=== PATIENT | male | born 1975 | race Caucasian/White ===

== ENCOUNTER 2017-08-06 19:33 | Inpatient (IN) | payer MEDICAID ==
[~2017-08-06] VITALS: Ht 172.7 cm; Wt 98.0 kg
[2017-08-07] VITALS (7 sets, daily range): BP systolic 104–130; BP diastolic 60–86
[2017-08-07 02:24] LABS: PLATELET COUNT 176 x10^3mcL (130-400); RED CELL DISTRIBUTION WIDTH 13.1 % (11.5-14.5)
[2017-08-07 02:33] LABS: CREATININE SERUM 2.1 mg/dL (0.7-1.3); POTASSIUM SERUM 4.4 mmol/L (3.5-5.1)
[2017-08-07 02:35] LABS: CALCIUM 8.1 mg/dL (8.5-10.1); CARBON DIOXIDE 20.7 mmol/L (21-32)
[2017-08-07 03:06] LABS: BAND NEUTROPHIL 16 % (0-10); BASOPHIL 0 % (0-2); METAMYELOCTE 1 % (0-2); MONOCYTE 6 % (0-7); SEGMENTED NEUTROPHILS 69 % (37-75)
[2017-08-07 03:07] LABS: rbc morphology (normal/abnorm) NORMAL (NORMAL)
[2017-08-07] MEDS ORDERED: VENTOLIN H0.09 MG/A1 INH (04:26)
[2017-08-07] MEDS ORDERED: IBUPROFEN400 MG PO (04:27)
[2017-08-07 06:32] LABS: UA SPECIFIC GRAVITY 1.025 (1.005-1.035); microscopic required? YES; urine erythrocyte 2+ (NEGATIVE)
[2017-08-07 06:46] LABS: AMPHETAMINE QUAL UR NONE DETECTED (NEG <=1000)
[2017-08-07 07:54] LABS: MAGNESIUM 1.7 mg/dL (1.8-2.4); PHOSPHOROUS 1.7 mg/dL (2.5-4.9)
[2017-08-07 07:56] LABS: CHOLESTEROL/HDL RATIO 8.8
[2017-08-07 08:11] LABS: FREE T4 1.3 ng/dL (0.76-1.46); FREE THYROXINE INDEX 2.7 ug/dL (1.4-4.5); T3 TOTAL 0.55 ng/mL; T4(THYROXINE) 8.5 ug/dL (4.7-13.3)
[2017-08-08 05:24] VITALS: BP 118/63
[2017-08-08 09:49] VITALS: BP 127/72
[2017-08-08] MEDS ORDERED: LAC PO (11:30)
[2017-08-08] MEDS ORDERED: AZITHROMYCIN250 M1 PO (13:33)
[2017-08-08 15:31] LABS: PLATELET COUNT 196 x10^3mcL (130-400); RED CELL DISTRIBUTION WIDTH 13.6 % (11.5-14.5)
[2017-08-08 15:38] LABS: CALCIUM 7.6 mg/dL (8.5-10.1); CARBON DIOXIDE 25.8 mmol/L (21-32); CHLORIDE SERUM 102 mmol/L (98-107); CREATININE SERUM 1.3 mg/dL (0.7-1.3); GFR1 > 60 mL/min; GLUCOSE SERUM 195 mg/dL (74-106); MAGNESIUM 2.2 mg/dL (1.8-2.4); PHOSPHOROUS 3.5 mg/dL (2.5-4.9); POTASSIUM SERUM 4.5 mmol/L (3.5-5.1); SODIUM SERUM 137 mmol/L (136-145)
[2017-08-08 16:27] LABS: BAND NEUTROPHIL 8 % (0-10); BASOPHIL 0 % (0-2); METAMYELOCTE 1 % (0-2); MONOCYTE 9 % (0-7); SEGMENTED NEUTROPHILS 71 % (37-75)
[2017-08-08 16:29] LABS: PLATELET MORPHOLOGY LARGE PLATELET SEEN; rbc morphology (normal/abnorm) NORMAL (NORMAL)
[2017-08-08 18:24] VITALS: BP 124/64
[2017-08-08 21:13] VITALS: BP 126/64
[2017-08-09 05:54] VITALS: BP 106/67
[2017-08-09 07:44] LABS: PLATELET COUNT 251 x10^3mcL (130-400); RED CELL DISTRIBUTION WIDTH 13.4 % (11.5-14.5)
[2017-08-09 08:18] LABS: CALCIUM 7.6 mg/dL (8.5-10.1); CARBON DIOXIDE 20.4 mmol/L (21-32); CHLORIDE SERUM 106 mmol/L (98-107); CREATININE SERUM 1.1 mg/dL (0.7-1.3); GFR1 > 60 mL/min; GLUCOSE SERUM 136 mg/dL (74-106); PHOSPHOROUS 3.6 mg/dL (2.5-4.9); POTASSIUM SERUM 3.9 mmol/L (3.5-5.1); SODIUM SERUM 139 mmol/L (136-145)
[2017-08-09 10:07] VITALS: BP 127/74
[2017-08-09 12:20] LABS: ATYPICAL LYMPH 2 %; BAND NEUTROPHIL 3 % (0-10); BASOPHIL 0 % (0-2); MONOCYTE 7 % (0-7); MYELOCYTE 2 % (0-2); SEGMENTED NEUTROPHILS 72 % (37-75)
[2017-08-09 12:21] LABS: rbc morphology (normal/abnorm) ABNORMAL (NORMAL)
[2017-08-09 12:22] LABS: PLATELET MORPHOLOGY PLATELETS NORMAL
[2017-08-09 13:41] VITALS: BP 127/74
[2017-08-09 16:52] VITALS: BP 135/67
[2017-08-09] MEDS ORDERED: LAC PO (17:56)
[2017-08-09] MEDS ORDERED: METFORMIN HCL500 MG PO (17:56)
[2017-08-09] MEDS ORDERED: GLU5 PO (17:56)
[2017-08-09] MEDS ORDERED: LEVAQUIN750 MG PO (17:56)
== END 2017-08-09 18:55 | disposition home or self-care (01) | DRG 139 ==
LOC: ED 19:33 → MU 08-07 04:09 → DU 08-07 04:09 → MU 08-08 07:47
PROVIDERS: Emergency Medicine; Family Medicine
DX: J18.9 Pneumonia, unspecified organism (principal); N17.0 Acute kidney failure with tubular necrosis; E43 Unspecified severe protein-calorie malnutrition; E87.1 Hypo-osmolality and hyponatremia; E11.65 Type 2 diabetes mellitus with hyperglycemia; E83.39 Other disorders of phosphorus metabolism; M94.0 Chondrocostal junction syndrome [Tietze]; N39.0 Urinary tract infection, site not specified; R31.9 Hematuria, unspecified; E78.5 Hyperlipidemia, unspecified; E66.9 Obesity, unspecified; Z68.32 Body mass index [BMI] 32.0-32.9, adult
CPT/HCPCS: 82962; 83880; 84439; 87804; 94150; G0480; J0696; J1815; J3475; J7030; J7620; Q0092